=== PATIENT | female | born 1995 | race Caucasian/White ===

== ENCOUNTER 2019-01-20 08:43 | Emergency (ER) | payer BC, SELFPAY ==
[2019-01-20 08:43] VITALS: BP 155/83; PULSE 78; RESP 16; TEMP 36.6; O2SAT 100; BMI 21.2
--- NOTE | 2019-01-20 09:26 | ED.VISSUMM ---
- ER Visit Summary Date of Service: 01/20/19 Chief Complaint: [Lacerations to right hand] History of Present Illness: The patient is a 23 F [presents to the emergency department after sustaining laceration to her right hand this morning. Patient states that she was cutting tomatoes on a tomato slicer and was not using a glove when she accidentally bumped her right hand against the tomato slicer blades.] Patient is right-hand dominant. Patient unsure of her last tetanus. Physical Examination: [Right hand-patient has a total of 6 small lacerations involving the thumb, index finger, and long finger. Patient has normal range of motion of all digits. She is neurovascularly intact. Normal strength and flexion extension of all digits.] Test Results: [None indicated] Emergency Department Course and Treatment: [Laceration repairs-wound sterilely draped and prepped. Wound cleansed with Shur-Clens and irrigated with copious saline. Wound initially anesthetized with 1% lidocaine with a total of 4 cc. Using 5-0 nylon a total of 9 single interrupted sutures placed with good wound edge approximation. Patient tired procedure well. Clean dressings applied.] Treatment Plan: [Patient to follow-up with primary care physician in 10 days for suture removal.] Disposition: [Discharged home in stable condition.] Impression: [Lacerations right hand total length 5 cm-simple repair] This note was generated with [employer] dictation software. It may contain incorrect words, spelling, and punctuation that were not noted in review of the chart prior to signing ED Disposition - Plan for ED Patient: Referrals: Sunday Hammond MD [Primary Care Provider] -
--- NOTE | 2019-01-20 09:29 | ED.DEP ---
ED Disposition - Plan for ED Patient: Instructions: LACERATION, Hand Referrals: Sunday Hammond MD [Primary Care Provider] - 10 Day for suture removal
[2019-01-20] MEDS: Diphth,Pertuss(Acell),Tet Vac 0.5 ML Vial IM (10:03)
== END 2019-01-20 10:21 | disposition home or self-care (01) ==
PROVIDERS: Emergency Provider Emergency Medicine; Family Provider Family Medicine; PCP Family Medicine
DX: S61.011A Laceration without foreign body of right thumb without damage to nail, initial encounter (principal); S61.210A Laceration without foreign body of right index finger without damage to nail, initial encounter; S61.212A Laceration without foreign body of right middle finger without damage to nail, initial encounter; W26.8XXA Contact with other sharp object(s), not elsewhere classified, initial encounter; Y93.G1 Activity, food preparation and clean up; Y92.9 Unspecified place or not applicable; Z72.0 Tobacco use
CPT/HCPCS: 12002; 90471; 90715; 99282